=== PATIENT | male | born 1945 | race Hispanic/Latino ===

== ENCOUNTER 2017-12-02 21:31 | Emergency (ER) | payer MEDICARE, OTHER ==
[2017-12-02] MEDS ORDERED: ACETAMINOPHEN EXTRA STRENGTH 500 MG TABLET ONE (22:14)
[2017-12-02] MEDS ORDERED: TETANUS/DIPHTHERIA TOXOID [ADULT] 0.5 ML VIAL IM ONE (22:15)
== END 2017-12-03 00:32 | disposition home or self-care (01) ==
LOC: EDH 21:31
DX: S50.11XA Contusion of right forearm, initial encounter (principal); E11.9 Type 2 diabetes mellitus without complications; E78.5 Hyperlipidemia, unspecified; I10 Essential (primary) hypertension; Z72.0 Tobacco use; Y04.0XXA Assault by unarmed brawl or fight, initial encounter; Y93.89 Activity, other specified; Y92.89 Other specified places as the place of occurrence of the external cause; Y99.8 Other external cause status
CPT/HCPCS: 73090; 90471; 90714

== ENCOUNTER → 2018-12-10 | Outpatient (CLI) | payer OTHER | END | disposition home or self-care (01) | LOC: SHCH 08:55 | PROVIDERS: ATTEND Internal Medicine Cardiovascular Disease | DX: I10 Essential (primary) hypertension (principal) | CPT/HCPCS: 93306 ==

== ENCOUNTER → 2018-12-15 | Outpatient (CLI) | payer OTHER ==
[~2018-12-15] VITALS: Ht 167.6 cm; Wt 81.2 kg
[~2018-12-15] MED LIST: REGADENOSON 0.4 MG/5 ML PF SYG IVP SCH
== END | disposition home or self-care (01) ==
LOC: SHCH 07:55
PROVIDERS: ATTEND Internal Medicine Cardiovascular Disease
DX: I10 Essential (primary) hypertension (principal)
CPT/HCPCS: 78452; 93017; 96374; A9500 ×2; J2785

== ENCOUNTER 2018-12-31 05:30 | Observation (INO) | payer OTHER ==
[2018-12-29 11:30] VITALS: BP 150/71
[2018-12-29 11:49] LABS: BASOPHILS % (AUTO) 1.5 % (0.0-5.0); EOSINOPHILS % (AUTO) 4.9 % (0.0-8.0); HEMATOCRIT 36.7 % (42-54); LYMPHOCYTES % (AUTO) 24.5 % (21.0-51.0); MEAN CORPUSCULAR HEMOGLOBIN 25.8 pg (27.0-33.0); MEAN CORPUSCULAR HGB CONC 32.8 g/dL (32.0-36.0); MEAN CORPUSCULAR VOLUME 78.5 fL (79-99); MONOCYTES % (AUTO) 7.4 % (3.0-13.0); NEUTROPHILS % (AUTO) 61.7 % (40.0-77.0); PLATELET COUNT (AUTO) 261 K/uL (130-400); RED BLOOD CELL COUNT(AUTO) 4.67 MIL/uL (4.50-6.20); RED CELL DISTRIBUTION WIDTH 14.5 % (11.0-15.5)
[2018-12-29 11:53] LABS: APPEARANCE,URINE Clear (CLEAR); BILIRUBIN,URINE Negative (NEGATIVE); COLOR,URINE Yellow (YELLOW); GLUCOSE, URINE (UA) Negative (NEGATIVE); KETONES,URINE Negative (NEGATIVE); LEUKOCYTE ESTERASE ,URINE Negative (NEGATIVE); NITRATE,URINE Negative (NEGATIVE); OCCULT BLOOD,URINE Negative (NEGATIVE); PROTEIN,URINE POS 2+ mg/dL (NEGATIVE); UROBILINOGEN,URINE 0.2 mg/dL (0.2-1.0)
[2018-12-29 11:57] LABS: CREATININE 1.3 mg/dL (0.5-1.5); POTASSIUM 4.8 mmol/L (3.5-5.1)
[2018-12-29 12:02] LABS: INR 0.95 (0.85-1.15)
[2018-12-29 12:28] LABS: PARTIAL THROMBOPLASTIN TIME 30.3 SEC (26.3-35.5)
[2018-12-29 13:06] LABS: BACTERIA,URINE Rare /HPF (None Seen); RBC,URINE 0-1 /HPF (0-1); SQUAMOUS EPITHELIAL CELL,UR Rare /HPF (0-2); WBC,URINE 0-1 /HPF (0-1)
--- NOTE | 2018-12-30 10:16 | NUR ---
LABS ABNORMAL BUN/CREA REPORTED TO [facility] (DR. SINCLAIR) , NO FURTHER ORDERS GIVEN
[2018-12-31] VITALS (11 sets, daily range): BP systolic 135–155; BP diastolic 62–76
[~2018-12-31] VITALS: Ht 167.6 cm; Wt 80.8 kg
[~2018-12-31 05:30] MED LIST changes: +ASCO-360 PO; +CHOL500045 PO; +CLOP75TA32 PO; +EMPA10TA PO; +GLIP10TA9 PO; +INSLAN SQ; +LEVO25TA54 PO; +LISI-613 PO; +METO25TA6 PO; -REGADENOSON 0.4 MG/5 ML PF SYG IVP SCH; +SIMV10TA6 PO; +SODIUM CHLORIDE 0.9% 500ML 500 ML IV SCH
--- NOTE | 2018-12-31 06:20 | NUR ---
BOTH PATIENT AND RECEIVED TEACHING FOR PRE AND POST CATH PROCEDURE. PATIENT AND INSTRUCTED ON IMPORTANCE OF BEING ON BEDREST POST PROCEDURE TO PREVENT BLEEDING FROM PUNCTURE SITE. BOTH VERBALIZED UNDERSTANDING AND AGREED TO COMPLY.
[2018-12-31] MEDS ORDERED: SODIUM CHLORIDE 0.9% 1000ML 1,000 ML IV ONE (06:37)
[2018-12-31] MEDS ORDERED: HEPARIN SODIUM 1000UNIT/ML 10ML VIAL ONE (07:10)
[2018-12-31] MEDS ORDERED: IOHEXOL 350 MG/ML 100ML INFUS..BTL IV ONE (07:10)
[2018-12-31] MEDS ORDERED: IOHEXOL-350 50ML VIAL IV ONE ×2 (07:10→08:26)
[2018-12-31] MEDS ORDERED: LIDOCAINE HCL 1% 20 ML VIAL ONE (07:10)
[2018-12-31] MEDS ORDERED: CLOPIDOGREL BISULFATE 300 MG TAB ONE (08:30)
[2018-12-31] MEDS ORDERED: ASPIRIN 81MG TAB.CHEW ONE (08:30)
[2018-12-31] MEDS ORDERED: GLUCAGON 1MG KIT 1 MG ML IM PRN (08:45)
[2018-12-31] MEDS ORDERED: DEXTROSE 50%-WATER 50 ML DISP.SYRIN IV PRN (08:45)
[2018-12-31] MEDS ORDERED: ONDANSETRON HCL 4 MG/2 ML VIAL IVP SCH (08:45)
[2018-12-31] MEDS ORDERED: MORPHINE SULFATE 5 MG/ML VIAL IVP SCH (08:45)
[2018-12-31] MEDS ORDERED: ACETAMINOPHEN 325 MG TAB PO PRN (08:45)
[2018-12-31] MEDS: ASPIRIN 81MG TAB.CHEW PO SCH (09:00)
[2018-12-31] MEDS: **HM** JARDIANCE 10MG PO SCH (09:00)
[2018-12-31] MEDS: CLOPIDOGREL BISULFATE 75 MG TAB PO SCH (09:00)
[2018-12-31] MEDS ORDERED: INSULIN GLARGINE 100 UNITS/ML 10 ML VIAL SQ SCH ×2 (09:00→21:00)
[2018-12-31] MEDS ORDERED: DEXTROSE 5 %-0.45 % NACL 1,000 ML IV SCH (09:00)
[2018-12-31] MEDS: ASCORBIC ACID 500 MG TAB PO SCH (09:52)
[2018-12-31] MEDS: LISINOPRIL 20 MG TABLET PO SCH (09:52)
[2018-12-31] MEDS: LEVOTHYROXINE 25 MCG TABLET PO SCH (09:53)
[2018-12-31] MEDS: METOPROLOL TARTRATE 25 MG TAB PO SCH ×2 (09:53→21:12)
[2018-12-31] MEDS: INSULIN HUMULIN R 100 UNIT/ML 3ML SQ SCH ×3 (11:30→21:00)
[2018-12-31 12:28] LABS: INR 1.02 (0.85-1.15); PROTHROMBIN TIME 10.7 SEC (9.6-11.6)
[2018-12-31 12:30] LABS: PARTIAL THROMBOPLASTIN TIME > 120.0 SEC (26.3-35.5)
--- NOTE | 2018-12-31 19:20 | NUR ---
Received bedside report,pt. S/P LHC and right groin covered with pressure dressing pt. is going to be on bedrest and to immobilize right lower extremity until 10 pm.Pt. demonstrated understanding.No bleeding noted and pedal pulses are well appreciated on palpation.
[2018-12-31] MEDS ORDERED: SIMVASTATIN 10 MG TABLET PO SCH (21:00)
[2019-01-01 03:00] VITALS: BP 134/60
[2019-01-01 04:19] LABS: HEMATOCRIT 36.6 % (42-54); MEAN CORPUSCULAR HEMOGLOBIN 25.1 pg (27.0-33.0); MEAN CORPUSCULAR HGB CONC 32.3 g/dL (32.0-36.0); MEAN CORPUSCULAR VOLUME 77.7 fL (79-99); PLATELET COUNT (AUTO) 266 K/uL (130-400); RED BLOOD CELL COUNT(AUTO) 4.71 MIL/uL (4.50-6.20); RED CELL DISTRIBUTION WIDTH 14.7 % (11.0-15.5); WHITE BLOOD COUNT (AUTO) 8.1 K/uL (4.8-10.8)
[2019-01-01 04:25] LABS: CREATININE 1.4 mg/dL (0.5-1.5); POTASSIUM 4.5 mmol/L (3.5-5.1)
[2019-01-01] MEDS: INSULIN HUMULIN R 100 UNIT/ML 3ML SQ SCH ×2 (06:49→11:30)
[2019-01-01 07:38] VITALS: BP 142/60
[2019-01-01] MEDS: **HM** JARDIANCE 10MG PO SCH (09:00)
[2019-01-01] MEDS: ASCORBIC ACID 500 MG TAB PO SCH (09:38)
[2019-01-01] MEDS: CLOPIDOGREL BISULFATE 75 MG TAB PO SCH (09:38)
[2019-01-01] MEDS: LISINOPRIL 20 MG TABLET PO SCH (09:39)
[2019-01-01] MEDS: METOPROLOL TARTRATE 25 MG TAB PO SCH (09:39)
[2019-01-01] MEDS: ASPIRIN 81MG TAB.CHEW PO SCH (09:39)
[2019-01-01] MEDS: LEVOTHYROXINE 25 MCG TABLET PO SCH (09:39)
[2019-01-01 11:09] VITALS: BP 128/60
[2019-01-01] MEDS ORDERED: GLIPIZIDE 5 MG TABLET PO SCH (12:00)
[2019-01-01] MEDS ORDERED: **HM** VIT D3 5000 UNITS PO SCH (12:00)
[2019-01-01] MEDS ORDERED: ASPI-1005 PO (12:39)
[2019-01-01] MEDS ORDERED: INSLAN SQ ×2 (12:39)
== END 2019-01-01 14:00 | disposition home or self-care (01) ==
LOC: DAH 05:30 → DAHIP 05:31 → DAH 05:31 → 2DH 09:27
PROVIDERS: ADMIT Internal Medicine Critical Care Medicine; ATTEND Internal Medicine Critical Care Medicine
DX: I25.119 Atherosclerotic heart disease of native coronary artery with unspecified angina pectoris (principal); E03.9 Hypothyroidism, unspecified; E11.9 Type 2 diabetes mellitus without complications; E78.5 Hyperlipidemia, unspecified; I10 Essential (primary) hypertension; F41.9 Anxiety disorder, unspecified; Z79.02 Long term (current) use of antithrombotics/antiplatelets; Z79.890 Hormone replacement therapy; Z79.899 Other long term (current) drug therapy; Z87.891 Personal history of nicotine dependence; Z79.01 Long term (current) use of anticoagulants
CPT/HCPCS: 36415 ×3; 71045; 80048 ×2; 81001; 82948 ×6; 85025; 85027; 85610 ×2; 85730 ×3; 93005; 93458; 96372; A4606; C1725; C1769 ×2; C1874 ×2; C1887; C1894; C9600; G0378 ×26; J1644 ×3; J7030; J7042; Q9965 ×2; Q9967 ×3

== ENCOUNTER 2022-06-19 00:18 | Emergency (ER) | payer OTHER ==
[~2022-06-19] VITALS: Ht 167.6 cm; Wt 79.4 kg
[~2022-06-19 00:18] MED LIST changes: +ASPI-1005 PO; -LISI-613 PO; +LISI20TA24 PO; -SIMV10TA6 PO; +SIMV10TA97 PO; -SODIUM CHLORIDE 0.9% 500ML 500 ML IV SCH
[2022-06-19 01:10] LABS: EOSINOPHILS % (AUTO) 5.9 % (0.0-8.0); HEMATOCRIT 38.1 % (42-54); LYMPHOCYTES % (AUTO) 27.2 % (21.0-51.0); MEAN CORPUSCULAR HEMOGLOBIN 24.7 pg (27.0-33.0); MEAN CORPUSCULAR HGB CONC 32.3 g/dL (32.0-36.0); MEAN CORPUSCULAR VOLUME 76.7 fL (79-99); MONOCYTES % (AUTO) 9.1 % (3.0-13.0); NEUTROPHILS % (AUTO) 56.4 % (40.0-77.0); PLATELET COUNT (AUTO) 231 K/uL (130-400); RED BLOOD CELL COUNT(AUTO) 4.97 MIL/uL (4.50-6.20); RED CELL DISTRIBUTION WIDTH 14.6 % (11.0-15.5); WHITE BLOOD COUNT (AUTO) 6.8 K/uL (4.8-10.8)
[2022-06-19 01:21] LABS: CREATININE 1.4 mg/dL (0.5-1.5); POTASSIUM 3.8 mmol/L (3.5-5.1)
[2022-06-19 01:26] LABS: ALBUMIN 3.2 g/dL (3.5-5.0); TOTAL PROTEIN, SERUM 6.9 g/dL (6.0-8.3)
[2022-06-19] MEDS ORDERED: ACETAMINOPHEN 500 MG TABLET PO ONE (01:30)
[2022-06-19 02:00] VITALS: BP 138/43
== END 2022-06-19 03:19 | disposition left against medical advice (07) ==
LOC: EDH 00:18
DX: Z53.21 Procedure and treatment not carried out due to patient leaving prior to being seen by health care provider (principal); W23.0XXA Caught, crushed, jammed, or pinched between moving objects, initial encounter
CPT/HCPCS: 36415; 73130; 80053; 83605; 85025; 87040

== ENCOUNTER → 2023-08-16 | Outpatient (CLI) | payer OTHER ==
[~2023-08-16] MED LIST changes: +REGADENOSON 0.4 MG/5 ML PF SYG IVP ONE
== END | disposition home or self-care (01) ==
LOC: SHCH 07:40
PROVIDERS: ATTEND Internal Medicine Cardiovascular Disease
DX: R07.9 Chest pain, unspecified (principal)
CPT/HCPCS: 78452; 93017; J2785; A9500 ×2; 96374